=== PATIENT | male | born 2000 | race Caucasian/White ===

== ENCOUNTER 2019-08-30 10:32 | Emergency (ER) | payer MEDICAID, OTHER ==
[~2019-08-30] VITALS: Ht 180.3 cm; Wt 80.0 kg
[2019-08-30 10:39] VITALS: BP 149/96
[2019-08-30] MEDS ORDERED: TETanus/Pertussis (Acell)/Diphther VAC/PF (Tdap-Adult) 0.5ml syringe IMVAC ONE (11:35)
[2019-08-30] MEDS ORDERED: L. R1CAP4 PO (11:59)
[2019-08-30] MEDS ORDERED: DOXY100C2 PO (11:59)
== END 2019-08-30 12:06 | disposition home or self-care (01) ==
LOC: ER 10:32
DX: S51.832A Puncture wound without foreign body of left forearm, initial encounter (principal); Z98.890 Other specified postprocedural states; Z88.1 Allergy status to other antibiotic agents; Z88.0 Allergy status to penicillin; Z79.2 Long term (current) use of antibiotics; Z79.4 Long term (current) use of insulin; Z79.899 Other long term (current) drug therapy; W54.0XXA Bitten by dog, initial encounter; Y93.89 Activity, other specified; Y92.89 Other specified places as the place of occurrence of the external cause; Y99.8 Other external cause status
CPT/HCPCS: 73090; 90471; 99283